=== PATIENT | male | born 2000 | race Caucasian/White ===

== ENCOUNTER 2022-04-17 08:29 | Emergency (ER) | payer BC ==
[2022-04-17] MEDS ORDERED: IBUPROFEN600 MG PO (09:43)
== END 2022-04-17 09:39 | disposition home or self-care (01) ==
LOC: ER1 08:29
DX: S60.221A Contusion of right hand, initial encounter (principal); F17.200 Nicotine dependence, unspecified, uncomplicated; W22.03XA Walked into furniture, initial encounter
CPT/HCPCS: 73130; 99283